=== PATIENT | male | born 1995 | race Caucasian/White ===

== ENCOUNTER 2017-08-12 17:58 | Emergency (ER) | payer OTHER ==
[2017-08-12] MEDS ORDERED: NS 1,000 ML IV ONE (18:41)
[2017-08-12 18:47] LABS: PLATELET COUNT 247 10^3/uL (150-400)
[2017-08-12] MEDS ORDERED: NS 2,000 ML IV ONE (19:14)
[2017-08-12] MEDS ORDERED: ACETAMINOPHEN 500 MG TAB PO ONE (19:54)
[2017-08-12] MEDS ORDERED: ONDANSETRON 4 MG/2 ML VIAL IVP ONE (19:54)
--- NOTE | 2017-08-12 20:18 | EDPHY ---
H & P Stated Complaint: 2 weeks bloody diarrhea Time Seen by Provider: 08/12/17 18:42 HPI/ROS: CHIEF COMPLAINT: Diarrhea x2 weeks HISTORY OF PRESENT ILLNESS: 21-year-old male no prior history of chronic abdominal pathology complaining of bloody appearing area for the past 12 days. No pain with defecation. This intermittent abdominal cramping sensation intermittent vomiting. No history of abdominal surgeries. No lightheadedness. No untreated water sources. No international travel. No known sick contacts. No dizziness. No syncope or presyncope. REVIEW OF SYSTEMS: A ten point review of systems was performed and is negative with the exception of the items mentioned in the HPI PAST MEDICAL & SURGICAL HISTORY: No history of abdominal surgeries SOCIAL HISTORY:Student PHYSICAL EXAM (Prior to examination, patient consented to physical exam, hands were washed and my usual and customary physical exam procedures followed) 1) GENERAL: Well-developed, well-nourished, alert and oriented. Appears nontoxic 2) HEAD: Normocephalic, atraumatic 3) HEENT: Pupils equal, round, reactive to light bilaterally. Sclera anicteric. Nasopharynx, oropharynx, clear, no lesions. Dry mucous membranes 4) NECK: Full range of motion, no meningeal signs. 5) LUNGS: Clear auscultation bilaterally, no wheezes, no rhonchi, no retractions. 6) HEART: Regular rate and rhythm, no murmur, no heave, no gallop. 7) ABDOMEN: No guarding, no rebound, no focal tenderness, negative McBurney's, negative Ortiz's, negative Rovsing's, negative peritoneal sign, unable to elicit any abdominal pain on exam 8) MUSCULOSKELETAL: Moving all extremities, no focal areas of tenderness, no obvious trauma. No peripheral edema or discoloration. 9) BACK: No CVA tenderness, no midline vertebral tenderness, no fluctuance, no step-off, no obvious trauma, no visual or palpable abnormality. 10) SKIN: No rash, no petechiae. 11) Psychiatric: Patient is oriented X 3, there is no agitation. DIFFERENTIAL DIAGNOSIS: In no particular include but limited to functional diarrhea, infectious diarrhea, C diff colitis , Crohn's disease, ulcerative colitis - Personal History Current Tetanus/Diphtheria Vaccine: Unsure - Medical/Surgical History Hx Asthma: No Hx Chronic Respiratory Disease: No Hx Diabetes: No Hx Cardiac Disease: No Hx Renal Disease: No Hx Cirrhosis: No Hx Alcoholism: No Hx HIV/AIDS: No Hx Splenectomy or Spleen Trauma: No Other PMH: l acl surg - Social History Smoking Status: Never smoked Constitutional: Initial Vital Signs Temperature (C) 37.3 C 08/12/17 18:00 Heart Rate 124 H 08/12/17 18:00 Respiratory Rate 20 08/12/17 18:00 Blood Pressure 139/95 H 08/12/17 18:00 O2 Sat (%) 94 08/12/17 18:00 O2 Delivery Mode Room Air Allergies/Adverse Reactions: No Known Allergies Allergy (Unverified 08/12/17 18:00) Home Medications: Medication Instructions Recorded NK [No Known Home Meds] 08/12/17 Medical Decision Making ED Course/Re-evaluation: Care of patient under supervision of secondary supervising physician Dr Bryson Chow with whom I discussed care . patient was re-evaluated with serial examinations was recently at 9:55 p.m.. He is noted to have bloody diarrhea with no organisms identified on stool analysis. Doubt acute infectious etiology. We discussed possible etiologies including, but not limited to, ulcerative colitis, Crohn's disease. I re-examined his abdomen which remains soft, no guarding no rebound no focal tenderness no McBurney's point pain. I think that acute surgical abdominal pathology is less than likely. He is not anemic, he is hemodynamically stable. Doubt anemia, I do not think that hospitalization or is currently indicated. However I have stressed the importance of close follow-up with primary care and with Gastroenterology as this will necessitate further evaluation and likely further diagnostic studies. His heart rate has decreased into the 90s after IV hydration. Recommend continued hydration with what he is losing through diarrhea. Both he and his parents feel comfortable with this plan. - Data Points Laboratory Results: Laboratory Results 08/12/17 18:30 08/12/17 18:30 08/12/17 08/12/17 08/12/17 18:45 18:30 18:30 WBC RBC Hgb Hct MCV MCH MCHC RDW Plt Count MPV Neut % (Auto) Lymph % (Auto) Rice % (Auto) Eos % (Auto) Baso % (Auto) Nucleat RBC Rel Count Absolute Neuts (auto) Absolute Lymphs (auto) Absolute Monos (auto) Absolute Eos (auto) Absolute Basos (auto) Absolute Nucleated RBC Immature Gran % Seg Neutrophils % Band Neutrophils % Lymphocytes % Monocytes % Immature Gran # Absolute Seg Neuts Absolute Band Neuts Absolute Lymphocytes Absolute Monocytes Platelet Estimate Polychromasia Sodium 137 mEq/L mEq/L (135-145) Potassium 3.6 mEq/L mEq/L (3.5-5.2) Chloride 101 mEq/L mEq/L (97-110) Carbon Dioxide 20 mEq/l L mEq/l (22-31) Anion Gap 16 mEq/L mEq/L (8-16) BUN 8 mg/dL mg/dL (7-23) Creatinine 1.0 mg/dL mg/dL (0.7-1.3) Estimated GFR > 60 Glucose 110 mg/dL H mg/dL (70-100) Calcium 9.3 mg/dL mg/dL (8.5-10.4) Total Bilirubin 0.5 mg/dL mg/dL (0.1-1.4) Conjugated Bilirubin 0.3 mg/dL mg/dL (0.0-0.5) Unconjugated Bilirubin 0.2 mg/dL mg/dL (0.0-1.1) AST 21 IU/L IU/L (17-59) ALT 26 IU/L IU/L (21-72) Alkaline Phosphatase 63 IU/L IU/L (38-126) Total Protein 6.8 g/dL g/dL (6.3-8.2) Albumin 3.9 g/dL g/dL (3.5-5.0) Lipase 45 IU/L IU/L (23-300) Stool Occult Bld Scrn POSITIVE H (NEGATIVE) 08/12/17 18:30 WBC 11.19 10^3/uL H 10^3/uL (3.80-9.50) RBC 4.89 10^6/uL 10^6/uL (4.40-6.38) Hgb 14.8 g/dL g/dL (13.7-17.5) Hct 42.6 % % (40.0-51.0) MCV 87.1 fL fL (81.5-99.8) MCH 30.3 pg pg (27.9-34.1) MCHC 34.7 g/dL g/dL (32.4-36.7) RDW 13.9 % % (11.5-15.2) Plt Count 247 10^3/uL 10^3/uL (150-400) MPV 11.0 fL fL (8.7-11.7) Neut % (Auto) 74.6 % H % (39.3-74.2) Lymph % (Auto) 8.0 % L % (15.0-45.0) Rice % (Auto) 15.9 % H % (4.5-13.0) Eos % (Auto) 0.3 % L % (0.6-7.6) Baso % (Auto) 0.7 % % (0.3-1.7) Nucleat RBC Rel Count 0.0 % % (0.0-0.2) Absolute Neuts (auto) 8.34 10^3/uL H 10^3/uL (1.70-6.50) Absolute Lymphs (auto) 0.90 10^3/uL L 10^3/uL (1.00-3.00) Absolute Monos (auto) 1.78 10^3/uL H 10^3/uL (0.30-0.80) Absolute Eos (auto) 0.03 10^3/uL 10^3/uL (0.03-0.40) Absolute Basos (auto) 0.08 10^3/uL 10^3/uL (0.02-0.10) Absolute Nucleated RBC 0.00 10^3/uL 10^3/uL (0-0.01) Immature Gran % 0.5 % % (0.0-1.1) Seg Neutrophils % 3 % % Band Neutrophils % 68 % % Lymphocytes % 18 % % Monocytes % 11 % % Immature Gran # 0.06 10^3/uL 10^3/uL (0.00-0.10) Absolute Seg Neuts 0.34 10^/uL L 10^/uL (1.70-6.50) Absolute Band Neuts 7.61 10^3/uL H 10^3/uL (0.00-0.70) Absolute Lymphocytes 2.01 10^3/uL 10^3/uL (1.00-3.00) Absolute Monocytes 1.23 10^3/uL H 10^3/uL (0.30-0.80) Platelet Estimate ADEQUATE (ADEQ) Polychromasia 1+ H Sodium Potassium Chloride Carbon Dioxide Anion Gap BUN Creatinine Estimated GFR Glucose Calcium Total Bilirubin Conjugated Bilirubin Unconjugated Bilirubin AST ALT Alkaline Phosphatase Total Protein Albumin Lipase Stool Occult Bld Scrn Microbiology Results: MICROBIOLOGY 08/12/17 18:45 Stool Gastrointestinal Tract Panel (PCR) - Final No Organism Detected Medications Given: Discontinued Medications Acetaminophen (Tylenol) 1,000 mg PO EDNOW ONE Stop: 08/12/17 19:55 Last Admin: 08/12/17 20:00 Dose: 1,000 mg Sodium Chloride (Ns) 1,000 mls @ 0 mls/hr IV EDNOW ONE; Wide Open PRN Reason: Protocol Stop: 08/12/17 18:42 Last Admin: 08/12/17 18:52 Dose: 1,000 mls Sodium Chloride (Ns) 2,000 mls @ 0 mls/hr IV ONCE ONE PRN Reason: Wide Open Stop: 08/12/17 19:15 Last Admin: 08/12/17 19:23 Dose: 1,000 mls Ondansetron HCl (Zofran) 4 mg IVP EDNOW ONE Stop: 08/12/17 19:55 Last Admin: 08/12/17 19:59 Dose: 4 mg Departure - Departure Disposition: Home, Routine, Self-Care Clinical Impression: Bloody diarrhea Condition: Good Instructions: Acute Diarrhea (ED) Additional Instructions: Seek immediate medical attention if you develop new or worsening symptoms, if you develop fevers, lightheadedness, chills, inability to tolerate oral intake or any other symptoms that concerns you. Referrals: Leeanna Medel MD [Medical Doctor] - 2-3 days, call for appt. 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 (Dr. Reddy Hamlin is a primary care provider) Stand Alone Forms: School Excuse
[2017-08-12 20:37] VITALS: RESP 16
[2017-08-12 21:56] VITALS: BP 140/81; PULSE 83; TEMP 99.1; O2SAT 91
== END 2017-08-12 22:09 | disposition home or self-care (01) ==
DX: R19.7 Diarrhea, unspecified (principal); E86.9 Volume depletion, unspecified
CPT/HCPCS: 96374; J2405